=== PATIENT | female | born 1955 | race Caucasian/White ===

== ENCOUNTER → 2017-06-04 | Outpatient (CLI) | payer OTHER ==
[~2017-06-04] MED LIST: ASCO10004 PO; ASPI-515 PO; ASPI-621 PO; ASPI81TA14 PO; BIOTIN PO; CALC1TAB76 PO; CALCIUM PO; DOCU100C8 PO; HYDR-3240 PO; LEVO112T25 PO; LEVO88TA32 PO; LEVO88TA4 PO; LORA-446 PO; OMEP20CA9 PO; OXYC5TAB3 PO; PREN1TAB60 PO; SERT100T PO; SERT50TA PO; VITA400C43 PO
[2017-06-04 14:00] LABS: HEMATOCRIT 42.2 % (34.6-47.8); HEMOGLOBIN 14.2 g/dL (11.7-16.4); WHITE BLOOD COUNT 4.8 x10^3/uL (3.4-10)
[2017-06-04 14:12] LABS: ASPARTATE AMINO TRANSFERASE 22 U/L (15-37); BLOOD UREA NITROGEN 16 mg/dL (7-18)
== END | disposition home or self-care (01) ==
LOC: STAR 12:39
PROVIDERS: ATTEND Orthopaedic Surgery Orthopaedic Surgery of the Spine
DX: Z01.818 Encounter for other preprocedural examination (principal); M43.17 Spondylolisthesis, lumbosacral region; M48.07 Spinal stenosis, lumbosacral region; R79.1 Abnormal coagulation profile; Z85.9 Personal history of malignant neoplasm, unspecified
CPT/HCPCS: 36415; 71020; 80053; 81003; 85025; 85610; 85651; 85730; 93005

== ENCOUNTER 2017-06-09 10:39 | Inpatient (IN) | payer OTHER ==
[~2017-06-09] VITALS: Ht 170.2 cm; Wt 70.9 kg
[~2017-06-09 10:39] MED LIST changes: +DOCU100C33 PO; -DOCU100C8 PO; -LEVO112T25 PO; +LEVO112T41 PO; -LEVO88TA32 PO; +LEVO88TA43 PO
[2017-06-09] MEDS ORDERED: DIAZ5TAB PO (10:57)
[2017-06-09] MEDS ORDERED: HYDR-879 PO (10:57)
[2017-06-09] MEDS ORDERED: TRAZ50TA18 PO (10:58)
[2017-06-09] MEDS ORDERED: DIAZEPAM 5 MG/ML, 2ML ONE (11:30)
[2017-06-09] MEDS ORDERED: DIAZEPAM 5 MG/ML, 2ML IVPush ONE ×2 (11:30→12:00)
[2017-06-09] MEDS ORDERED: SODIUM CHLORIDE FLUSH 10ML SYR IVF ONE (11:30)
[2017-06-09 11:38] LABS: HEMATOCRIT 42.4 % (34.6-47.8); HEMOGLOBIN 14.3 g/dL (11.7-16.4)
[2017-06-09 11:48] LABS: BLOOD UREA NITROGEN 18 mg/dL (7-18)
[2017-06-09] MEDS ORDERED: DIAZEPAM 5 MG TABLET PO ONE (13:30)
[2017-06-09] MEDS ORDERED: KETOROLAC 30 MG/1 ML IVPush ONE (13:30)
[2017-06-09] MEDS ORDERED: KETOROLAC 30 MG/1 ML ONE (13:39)
[2017-06-09] MEDS ORDERED: DIAZEPAM 5 MG TABLET ONE (13:39)
[2017-06-09] MEDS ORDERED: OXYcodone IR 5MG TABLET PO PRN (14:00)
[2017-06-09] MEDS ORDERED: TEMAZEPAM 15 MG CAPSULE PO PRN (14:00)
[2017-06-09 18:45] VITALS: BP 119/69
[2017-06-09] MEDS: ONDANSETRON ODT 4 MG PO PRN (19:58)
[2017-06-09] MEDS: GABAPENTIN 300 MG CAPSULE PO SCH (19:59)
[2017-06-09] MEDS: FAMOTIDINE 20 MG TABLET PO SCH (20:00)
[2017-06-09] MEDS: SERTRALINE 50MG TABLET PO SCH (20:00)
[2017-06-10 03:12] VITALS: BP 97/60
[2017-06-10 05:45] LABS: HEMATOCRIT 41.3 % (34.6-47.8); HEMOGLOBIN 13.8 g/dL (11.7-16.4); WHITE BLOOD COUNT 5.5 x10^3/uL (3.4-10)
[2017-06-10 06:00] LABS: BLOOD UREA NITROGEN 25 mg/dL (7-18)
[2017-06-10] MEDS: LEVOTHYROXINE 88 MCG TABLET PO SCH (06:44)
[2017-06-10 08:01] VITALS: BP 111/70
[2017-06-10] MEDS: FAMOTIDINE 20 MG TABLET PO SCH ×2 (09:58→21:38)
[2017-06-10] MEDS: SENNA/DOCUSATE TABLET PO SCH (09:58)
[2017-06-10 13:09] VITALS: BP 117/64
[2017-06-10] MEDS ORDERED: BACLOFEN 10 MG TABLET PO PRN (15:30)
[2017-06-10] MEDS: GABAPENTIN 300 MG CAPSULE PO SCH (21:38)
[2017-06-10] MEDS: SERTRALINE 50MG TABLET PO SCH (21:38)
[2017-06-10 21:58] VITALS: BP 111/70
[2017-06-11 06:18] VITALS: BP 109/71
[2017-06-11] MEDS: LEVOTHYROXINE 88 MCG TABLET PO SCH (06:18)
[2017-06-11 08:17] VITALS: BP 137/85
[2017-06-11] MEDS: FAMOTIDINE 20 MG TABLET PO SCH (08:51)
[2017-06-11] MEDS: ONDANSETRON ODT 4 MG PO PRN ×2 (08:52→15:01)
[2017-06-11] MEDS: SENNA/DOCUSATE TABLET PO SCH (08:52)
[2017-06-11] MEDS ORDERED: BACL-19 PO (13:36)
[2017-06-11 14:19] VITALS: BP 114/65
== END 2017-06-11 15:53 | disposition home or self-care (01) | DRG 552 ==
LOC: ED 12:41 → EDIP 12:46 → 4NOR 14:39
PROVIDERS: ADMIT Family Medicine; ATTEND Family Medicine
DX: M51.17 Intervertebral disc disorders with radiculopathy, lumbosacral region (principal); E03.9 Hypothyroidism, unspecified; F41.1 Generalized anxiety disorder; G89.29 Other chronic pain; I25.10 Atherosclerotic heart disease of native coronary artery without angina pectoris; G43.909 Migraine, unspecified, not intractable, without status migrainosus; M19.90 Unspecified osteoarthritis, unspecified site; Z85.3 Personal history of malignant neoplasm of breast; Z86.73 Personal history of transient ischemic attack (TIA), and cerebral infarction without residual deficits; Z87.891 Personal history of nicotine dependence; Z88.8 Allergy status to other drugs, medicaments and biological substances; Z90.49 Acquired absence of other specified parts of digestive tract; Z90.12 Acquired absence of left breast and nipple
CPT/HCPCS: 36415; 72148; 80048; 82040; 85025; 96374; 96375; J1885; J3360; Q0162

== ENCOUNTER 2017-06-13 06:00 | Inpatient (IN) | payer OTHER ==
[~2017-06-13] VITALS: Ht 170.2 cm; Wt 75.8 kg
[~2017-06-13 06:00] MED LIST changes: +BACL-19 PO; +DIAZ5TAB PO; +HYDR-879 PO; +TRAZ50TA18 PO
[2017-06-13] MEDS ORDERED: LACTATED RINGERS 1,000 ML IV SCH (06:53)
[2017-06-13] MEDS ORDERED: VANCOMYCIN 1,000 MG ONE (07:29)
[2017-06-13] MEDS ORDERED: THROMBIN 5,000 UNIT VIAL TP ONE ×2 (07:29→08:46)
[2017-06-13] MEDS ORDERED: BUPIVACAINE/PF 0.5% ONE (07:29)
[2017-06-13] MEDS ORDERED: EPINEPHRINE 1 MG/ML, 1ML ONE (07:29)
[2017-06-13] MEDS ORDERED: BACITRACIN 50,000 UNIT ONE (07:29)
[2017-06-13] MEDS ORDERED: PHENYLEPHRINE 10 MG/ML ONE (08:02)
[2017-06-13] MEDS ORDERED: DEXAMETHASONE 4 MG/ML, 5ML ONE ×2 (08:02)
[2017-06-13] MEDS ORDERED: CEFAZOLIN 1,000 MG ONE (08:02)
[2017-06-13] MEDS ORDERED: PROPOFOL 10 MG/ML, 20ML ONE ×2 (08:02)
[2017-06-13] MEDS ORDERED: SUCCINYLCHOLINE 20 MG/ML, 10ML ONE (08:02)
[2017-06-13] MEDS ORDERED: ONDANSETRON 2MG/ML, 2ML ONE (08:02)
[2017-06-13] MEDS ORDERED: MIDAZOLAM 1 MG/ML, 2ML ONE (08:03)
[2017-06-13] MEDS ORDERED: FENTANYL PF 500 MCG/10ML ONE (08:03)
[2017-06-13] MEDS ORDERED: KETAMINE 10 MG/ML, 20ML ONE (08:03)
[2017-06-13] MEDS ORDERED: HYDROmorphone 2 MG/ML, 1ML ONE (08:03)
[2017-06-13] MEDS ORDERED: TRANEXAMIC ACID 100 MG/ML, 10ML ONE ×2 (08:35)
[2017-06-13] MEDS ORDERED: BUPIVACAINE/PF-EPI 0.5% 1:200K INFIL ONE (08:45)
[2017-06-13] MEDS ORDERED: BACITRACIN 50,000 UNIT IM ONE (08:46)
[2017-06-13] MEDS ORDERED: VANCOMYCIN 1,000 MG IVPush ONE (08:47)
[2017-06-13] MEDS ORDERED: MEPERIDINE/PF 25MG/0.5ML IVPush PRN (09:30)
[2017-06-13] MEDS ORDERED: ALBUTEROL/IPRATROPIUM 2.5MG/0.5MG, 3 ML NPPB PRN (09:30)
[2017-06-13] MEDS ORDERED: FENTANYL PF 100 MCG/2ML IV PRN (09:30)
[2017-06-13] MEDS ORDERED: ONDANSETRON 2MG/ML, 2ML IVPush PRN (09:30)
[2017-06-13] MEDS ORDERED: ACETAMINOPHEN 325 MG TABLET PO PRN (09:30)
[2017-06-13] MEDS ORDERED: PROMETHAZINE 25 MG/ML, 1ML IV PRN (09:30)
[2017-06-13] MEDS ORDERED: HYDROmorphone 1 MG/ML, 1ML IV PRN (09:30)
[2017-06-13] MEDS ORDERED: hydrALAzine 20 MG/ML, 1ML IV PRN (09:30)
[2017-06-13] MEDS ORDERED: MIDAZOLAM 1 MG/ML, 2ML IV PRN (09:30)
[2017-06-13] MEDS ORDERED: LABETALOL 5MG/ML, 20ML IV PRN ×2 (09:30→16:00)
[2017-06-13] MEDS ORDERED: OXYcodone 5 MG/5 ML ORAL.SOL UDC PO PRN (09:30)
[2017-06-13] MEDS ORDERED: OXYcodone 5 MG/5 ML ORAL.SOL UDC ONE (13:47)
[2017-06-13] MEDS ORDERED: KETOROLAC 30 MG/1 ML ONE (13:47)
[2017-06-13] MEDS ORDERED: KETOROLAC 30 MG/1 ML IVPush ONE (14:00)
[2017-06-13] MEDS ORDERED: ONDANSETRON 2MG/ML, 2ML IV PRN (16:00)
[2017-06-13] MEDS ORDERED: MAGNESIUM HYDROXIDE 8%, 30ML UDC PO PRN (16:00)
[2017-06-13] MEDS ORDERED: BISACODYL 10 MG SUPP PR PRN (16:00)
[2017-06-13] MEDS ORDERED: DIAZEPAM 5 MG/ML, 10ML VIAL IV PRN (16:00)
[2017-06-13] MEDS ORDERED: ACETAMINOPHEN 650 MG SUPP PR PRN (16:00)
[2017-06-13] MEDS ORDERED: DIAZEPAM 5 MG/ML, 2ML IV PRN (16:00)
[2017-06-13] MEDS ORDERED: SODIUM CHLORIDE 0.9% 1,000 ML IV PRN (16:00)
[2017-06-13] MEDS: D5%-0.9% NACL+KCL 20MEQ 1,000 ML IV SCH (16:31)
[2017-06-13] MEDS: CEFAZOLIN PMX 1GM/50ML 50 ML IVPB SCH (16:31)
[2017-06-13] MEDS: DIAZEPAM 5 MG TABLET PO PRN (16:40)
[2017-06-13] MEDS ORDERED: DIPHENHYDRAMINE 50 MG CAPSULE PO PRN (20:00)
[2017-06-13 20:25] VITALS: BP 113/66
[2017-06-13] MEDS ORDERED: ZOLPIDEM 5MG TABLET PO PRN (21:00)
[2017-06-13] MEDS: SERTRALINE 50MG TABLET PO SCH (21:51)
[2017-06-13] MEDS: PRENATAL VIT/IRON/FA 1 EACH TABLET PO SCH (21:51)
[2017-06-14] MEDS: CEFAZOLIN PMX 1GM/50ML 50 ML IVPB SCH (00:08)
[2017-06-14] MEDS: D5%-0.9% NACL+KCL 20MEQ 1,000 ML IV SCH ×3 (02:25→22:00)
[2017-06-14 02:58] VITALS: BP 107/64
[2017-06-14] MEDS: LEVOTHYROXINE 88 MCG TABLET PO SCH (05:48)
[2017-06-14 06:42] LABS: HEMATOCRIT 29.8 % (34.6-47.8); WHITE BLOOD COUNT 9.4 x10^3/uL (3.4-10)
[2017-06-14] MEDS: DIAZEPAM 5 MG/ML, 10ML VIAL IV PRN ×2 (07:02→12:30)
[2017-06-14 07:31] VITALS: BP 111/57
[2017-06-14] MEDS: CALCIUM CARBONATE 500 MG TABLET PO SCH (08:47)
[2017-06-14] MEDS: OMEPRAZOLE 20 MG CAPSULE.DR PO SCH (08:47)
[2017-06-14] MEDS: PRENATAL VIT/IRON/FA 1 EACH TABLET PO SCH ×2 (08:49→21:06)
[2017-06-14] MEDS: ASCORBIC ACID 500 MG TABLET PO SCH (08:49)
[2017-06-14] MEDS: SENNA/DOCUSATE TABLET PO SCH (08:49)
[2017-06-14] MEDS: OXYcodone IR 5MG TABLET PO PRN ×3 (12:30→23:23)
[2017-06-14 13:24] VITALS: BP 137/75
[2017-06-14 20:45] VITALS: BP 126/69
[2017-06-14] MEDS: SERTRALINE 50MG TABLET PO SCH (21:00)
[2017-06-14] MEDS: morphine SULFATE 10 MG/ML, 1ML IV PRN (21:06)
[2017-06-14] MEDS: DIAZEPAM 5 MG TABLET PO PRN (21:06)
[2017-06-15 03:38] VITALS: BP 126/69
[2017-06-15] MEDS: morphine SULFATE 10 MG/ML, 1ML IV PRN (03:57)
[2017-06-15] MEDS: DIAZEPAM 5 MG TABLET PO PRN ×3 (03:58→22:00)
[2017-06-15 06:02] LABS: HEMOGLOBIN 10.2 g/dL (11.7-16.4); WHITE BLOOD COUNT 12.9 x10^3/uL (3.4-10)
[2017-06-15] MEDS: PROMETHAZINE 25 MG/ML, 1ML IM PRN ×2 (07:21→17:35)
[2017-06-15] MEDS: OXYcodone IR 5MG TABLET PO PRN ×6 (07:22→22:00)
[2017-06-15 07:40] VITALS: BP 123/70
[2017-06-15] MEDS: D5%-0.9% NACL+KCL 20MEQ 1,000 ML IV SCH ×2 (08:00→18:00)
[2017-06-15] MEDS: OMEPRAZOLE 20 MG CAPSULE.DR PO SCH (08:26)
[2017-06-15] MEDS: LEVOTHYROXINE 88 MCG TABLET PO SCH (08:26)
[2017-06-15] MEDS: ASCORBIC ACID 500 MG TABLET PO SCH (08:29)
[2017-06-15] MEDS: CALCIUM CARBONATE 500 MG TABLET PO SCH (08:29)
[2017-06-15] MEDS: ACETAMINOPHEN 500 MG TABLET PO PRN ×2 (08:29→17:35)
[2017-06-15] MEDS: SENNA/DOCUSATE TABLET PO SCH (08:29)
[2017-06-15] MEDS: PRENATAL VIT/IRON/FA 1 EACH TABLET PO SCH ×2 (08:31→20:43)
[2017-06-15 13:53] VITALS: BP 119/63
[2017-06-15] MEDS ORDERED: ZOLPIDEM 5MG TABLET PO PRN (19:30)
[2017-06-15] MEDS ORDERED: ACETAMINOPHEN 650 MG SUPP PR PRN (19:30)
[2017-06-15] MEDS ORDERED: LABETALOL 5MG/ML, 20ML IV PRN (19:30)
[2017-06-15] MEDS ORDERED: SODIUM CHLORIDE 0.9% 1,000 ML IV PRN (19:30)
[2017-06-15] MEDS ORDERED: DIPHENHYDRAMINE 50 MG CAPSULE PO PRN (19:30)
[2017-06-15] MEDS ORDERED: MAGNESIUM HYDROXIDE 8%, 30ML UDC PO PRN (19:30)
[2017-06-15] MEDS ORDERED: BISACODYL 10 MG SUPP PR PRN (19:30)
[2017-06-15] MEDS ORDERED: ONDANSETRON 2MG/ML, 2ML IV PRN (19:30)
[2017-06-15 20:01] VITALS: BP 119/64
[2017-06-15] MEDS: SERTRALINE 50MG TABLET PO SCH (20:43)
[2017-06-16] MEDS: OXYcodone IR 5MG TABLET PO PRN ×6 (01:38→21:18)
[2017-06-16 02:28] VITALS: BP 120/71
[2017-06-16] MEDS: D5%-0.9% NACL+KCL 20MEQ 1,000 ML IV SCH ×3 (04:00→23:16)
[2017-06-16] MEDS: ACETAMINOPHEN 500 MG TABLET PO PRN ×2 (04:28→10:41)
[2017-06-16] MEDS: DIAZEPAM 5 MG TABLET PO PRN ×2 (04:29→10:32)
[2017-06-16 05:13] LABS: HEMATOCRIT 29.3 % (34.6-47.8); WHITE BLOOD COUNT 11.7 x10^3/uL (3.4-10)
[2017-06-16 07:00] VITALS: BP 103/67
[2017-06-16] MEDS: LEVOTHYROXINE 88 MCG TABLET PO SCH (08:04)
[2017-06-16] MEDS: OMEPRAZOLE 20 MG CAPSULE.DR PO SCH (08:04)
[2017-06-16] MEDS: PRENATAL VIT/IRON/FA 1 EACH TABLET PO SCH ×2 (08:04→21:18)
[2017-06-16] MEDS: SENNA/DOCUSATE TABLET PO SCH (08:05)
[2017-06-16] MEDS: CALCIUM CARBONATE 500 MG TABLET PO SCH (08:05)
[2017-06-16] MEDS: ASCORBIC ACID 500 MG TABLET PO SCH (08:05)
[2017-06-16 13:16] VITALS: BP 92/57
[2017-06-16 14:15] VITALS: BP 117/70
[2017-06-16] MEDS ORDERED: DIAZEPAM 5 MG TABLET PO PRN (18:00)
[2017-06-16] MEDS ORDERED: DIAZEPAM 5 MG/ML, 10ML VIAL IV PRN (18:00)
[2017-06-16 20:03] VITALS: BP 108/57
[2017-06-16] MEDS: SERTRALINE 50MG TABLET PO SCH (21:17)
[2017-06-16] MEDS: KETOROLAC 30 MG/1 ML IV PRN (21:18)
[2017-06-17 03:27] VITALS: BP 94/56
[2017-06-17 05:07] LABS: HEMATOCRIT 27.8 % (34.6-47.8); HEMOGLOBIN 9.4 g/dL (11.7-16.4); WHITE BLOOD COUNT 8.7 x10^3/uL (3.4-10)
[2017-06-17] MEDS: LEVOTHYROXINE 88 MCG TABLET PO SCH (06:48)
[2017-06-17 07:00] VITALS: BP 109/65
[2017-06-17] MEDS: KETOROLAC 30 MG/1 ML IV PRN ×2 (08:00→16:30)
[2017-06-17] MEDS: OMEPRAZOLE 20 MG CAPSULE.DR PO SCH (08:21)
[2017-06-17] MEDS: ASCORBIC ACID 500 MG TABLET PO SCH (08:22)
[2017-06-17] MEDS: CALCIUM CARBONATE 500 MG TABLET PO SCH (08:22)
[2017-06-17] MEDS: PRENATAL VIT/IRON/FA 1 EACH TABLET PO SCH ×2 (08:22→20:55)
[2017-06-17] MEDS: SENNA/DOCUSATE TABLET PO SCH (08:22)
[2017-06-17] MEDS: OXYcodone IR 5MG TABLET PO PRN ×4 (09:50→20:55)
[2017-06-17] MEDS: D5%-0.9% NACL+KCL 20MEQ 1,000 ML IV SCH ×2 (10:00→20:00)
[2017-06-17 12:58] VITALS: BP 112/68
[2017-06-17] MEDS ORDERED: DIAZEPAM 5 MG TABLET PO PRN (13:30)
[2017-06-17] MEDS ORDERED: DIAZEPAM 5 MG/ML, 10ML VIAL IV PRN (13:30)
[2017-06-17 20:20] VITALS: BP 93/50
[2017-06-17] MEDS: SERTRALINE 50MG TABLET PO SCH (20:54)
[2017-06-18] MEDS: KETOROLAC 30 MG/1 ML IV PRN ×2 (01:20→10:11)
[2017-06-18] MEDS: OXYcodone IR 5MG TABLET PO PRN ×3 (01:20→13:54)
[2017-06-18] MEDS: D5%-0.9% NACL+KCL 20MEQ 1,000 ML IV SCH (06:00)
[2017-06-18] MEDS: LEVOTHYROXINE 88 MCG TABLET PO SCH (06:45)
[2017-06-18 08:35] VITALS: BP 108/70
[2017-06-18 09:07] LABS: HEMATOCRIT 29.2 % (34.6-47.8); HEMOGLOBIN 9.5 g/dL (11.7-16.4); WHITE BLOOD COUNT 6.8 x10^3/uL (3.4-10)
[2017-06-18] MEDS: CALCIUM CARBONATE 500 MG TABLET PO SCH (10:10)
[2017-06-18] MEDS: SENNA/DOCUSATE TABLET PO SCH (10:10)
[2017-06-18] MEDS: PRENATAL VIT/IRON/FA 1 EACH TABLET PO SCH (10:10)
[2017-06-18] MEDS: OMEPRAZOLE 20 MG CAPSULE.DR PO SCH (10:11)
[2017-06-18] MEDS: ASCORBIC ACID 500 MG TABLET PO SCH (10:11)
[2017-06-18] MEDS ORDERED: OXYC5CAP2 PO (13:48)
[2017-06-18] MEDS ORDERED: ONDA4TAB7 PO (13:48)
[2017-06-18] MEDS ORDERED: DIAZ5TAB PO (13:50)
[2017-06-18] MEDS ORDERED: CEPH-368 PO (13:51)
[2017-06-18] MEDS ORDERED: IBUP-1223 PO (13:52)
[2017-06-18] MEDS ORDERED: OMEP-110 PO (13:54)
[2017-06-18 13:55] VITALS: BP 119/67
[2017-06-18] MEDS ORDERED: SENN1TAB7 PO (13:55)
[2017-06-18] MEDS ORDERED: ACET325T14 PO (13:57)
[2017-06-18] MEDS ORDERED: DIPH25CA61 PO (13:57)
== END 2017-06-18 14:30 | disposition home or self-care (01) | DRG 460 ==
LOC: ORIP 06:00 → 4NOR 14:50 → DCLOUNGE 06-18 14:15
PROVIDERS: ADMIT Orthopaedic Surgery Orthopaedic Surgery of the Spine; ATTEND Orthopaedic Surgery Orthopaedic Surgery of the Spine
PROC: 0SG30AJ Fusion of Lumbosacral Joint with Interbody Fusion Device, Posterior Approach, Anterior Column, Open Approach (ICD-10-PCS; 2017-06-13)
PROC: 07DR3ZX Extraction of Iliac Bone Marrow, Percutaneous Approach, Diagnostic (ICD-10-PCS; 2017-06-13)
PROC: 00Q20ZZ Repair Dura Mater, Open Approach (ICD-10-PCS; 2017-06-13)
PROC: 4A11X4G Monitoring of Peripheral Nervous Electrical Activity, Intraoperative, External Approach (ICD-10-PCS; 2017-06-13)
PROC: 0SG00AJ Fusion of Lumbar Vertebral Joint with Interbody Fusion Device, Posterior Approach, Anterior Column, Open Approach (ICD-10-PCS; principal; 2017-06-13 08:00)
DX: M43.16 Spondylolisthesis, lumbar region (principal); G96.11 Dural tear; M48.06 Spinal stenosis, lumbar region; M43.17 Spondylolisthesis, lumbosacral region; M54.16 Radiculopathy, lumbar region; M48.07 Spinal stenosis, lumbosacral region; M54.17 Radiculopathy, lumbosacral region
CPT/HCPCS: 36415; 72100; 85025; 86850; 86900; C1713; J0171; J0690; J1100; J1170; J1885; J2250; J2270; J2405; J2550; J2704; J3010; J3360; J3370; J3490; C1760; C1762; C1763; C9362; J0330; J2370; J3480; J7120

== ENCOUNTER 2017-07-11 18:16 | Emergency (ER) | payer OTHER ==
[~2017-07-11] VITALS: Ht 170.2 cm; Wt 62.7 kg
[~2017-07-11 18:16] MED LIST changes: +ACET325T14 PO; +CEPH-368 PO; +DIPH25CA61 PO; +IBUP-1223 PO; +OMEP-110 PO; +ONDA4TAB7 PO; +OXYC5CAP2 PO; +SENN1TAB7 PO
[2017-07-11] MEDS ORDERED: ONDANSETRON 2MG/ML, 2ML ONE (19:13)
[2017-07-11] MEDS ORDERED: HYDROmorphone 1 MG/ML, 1ML ONE (19:13)
[2017-07-11] MEDS ORDERED: SODIUM CHLORIDE FLUSH 10ML SYR IVF ONE (19:30)
[2017-07-11] MEDS ORDERED: HYDROmorphone 1 MG/ML, 1ML IVPush PRN (19:30)
[2017-07-11] MEDS ORDERED: SODIUM CHLORIDE 0.9% 1,000ML IV ONE (19:30)
[2017-07-11] MEDS ORDERED: ONDANSETRON 2MG/ML, 2ML IVPush ONE (19:30)
[2017-07-11 20:04] LABS: HEMATOCRIT 34.9 % (34.6-47.8); HEMOGLOBIN 11.7 g/dL (11.7-16.4); WHITE BLOOD COUNT 10.6 x10^3/uL (3.4-10)
[2017-07-11 20:15] LABS: ASPARTATE AMINO TRANSFERASE 17 U/L (15-37); BLOOD UREA NITROGEN 15 mg/dL (7-18); C-REACTIVE PROTEIN, QUANT 0.56 mg/dL (0.02-0.49)
[2017-07-11 20:46] LABS: DAU SCREEN DISCLAIMER
[2017-07-11 20:52] LABS: PATH.CAST-FLAG NOT PRESENT; SPERM-FLAG NOT PRESENT; SRC-FLAG NOT PRESENT; XTAL-FLAG NOT PRESENT; YLC-FLAG NOT PRESENT
[2017-07-11 22:10] VITALS: BP 112/70
== END 2017-07-11 23:02 | disposition home or self-care (01) ==
LOC: ED 20:44
DX: G89.18 Other acute postprocedural pain (principal); M54.5 Low back pain; R10.31 Right lower quadrant pain; R11.2 Nausea with vomiting, unspecified; E05.90 Thyrotoxicosis, unspecified without thyrotoxic crisis or storm; G43.909 Migraine, unspecified, not intractable, without status migrainosus
CPT/HCPCS: 36415; 80053; 80307; 81001; 85025; 85651; 86140; 87086; 93005; 96360; 99285; J7030; G0479

== ENCOUNTER 2017-07-29 10:24 | Emergency (ER) | payer OTHER ==
[~2017-07-29] VITALS: Ht 170.2 cm; Wt 60.5 kg
[2017-07-29] MEDS ORDERED: SODIUM CHLORIDE 0.9% 1,000ML IVBOLUS ONE (12:00)
[2017-07-29] MEDS ORDERED: SODIUM CHLORIDE FLUSH 10ML SYR IVF ONE (12:00)
[2017-07-29] MEDS ORDERED: MORPHINE SULFATE 4 MG/ML, 1ML IVPush PRN (12:00)
[2017-07-29] MEDS ORDERED: ONDANSETRON 2MG/ML, 2ML IVPush ONE (12:00)
[2017-07-29 12:30] LABS: BLOOD UREA NITROGEN 11 mg/dL (7-18)
[2017-07-29 12:33] LABS: ASPARTATE AMINO TRANSFERASE 20 U/L (15-37)
[2017-07-29] MEDS ORDERED: CEFTRIAXONE 1,000 MG ONE (12:56)
[2017-07-29] MEDS ORDERED: CEFTRIAXONE 1,000 MG IM ONE (13:00)
[2017-07-29 13:25] LABS: HEMATOCRIT 37.2 % (34.6-47.8); HEMOGLOBIN 12.3 g/dL (11.7-16.4); WHITE BLOOD COUNT 12.4 x10^3/uL (3.4-10)
[2017-07-29 13:46] VITALS: BP 123/69
== END 2017-07-29 14:03 | disposition home or self-care (01) ==
LOC: ED 13:25
DX: R10.30 Lower abdominal pain, unspecified (principal); R31.9 Hematuria, unspecified; E05.90 Thyrotoxicosis, unspecified without thyrotoxic crisis or storm; I25.110 Atherosclerotic heart disease of native coronary artery with unstable angina pectoris; G89.29 Other chronic pain; R51 Headache; Z90.49 Acquired absence of other specified parts of digestive tract; Z98.890 Other specified postprocedural states
CPT/HCPCS: 36415; 76700; 80053; 81001; 83690; 85025; 87077; 87086; 96372; 99285; J0696; 87186

== ENCOUNTER → 2018-01-30 | Outpatient (CLI) | payer OTHER | LOC: RAD 11:16 | PROVIDERS: ATTEND Neurological Surgery | DX: M51.26 Other intervertebral disc displacement, lumbar region (principal); M41.9 Scoliosis, unspecified; T85.698A Other mechanical complication of other specified internal prosthetic devices, implants and grafts, initial encounter | CPT/HCPCS: 72082; 72110 ==

== ENCOUNTER 2018-04-06 16:41 | Emergency (ER) | payer OTHER ==
[~2018-04-06] VITALS: Ht 170.2 cm; Wt 62.0 kg
[2018-04-06] MEDS ORDERED: TRAM50TA2 PO (16:58)
[2018-04-06] MEDS ORDERED: SODIUM CHLORIDE FLUSH 10ML SYR IVF ONE (17:00)
[2018-04-06] MEDS ORDERED: MORPHINE SULFATE 4 MG/ML, 1ML IVPush PRN (17:00)
[2018-04-06] MEDS ORDERED: MORPHINE SULFATE 4 MG/ML, 1ML ONE (17:21)
[2018-04-06 17:35] LABS: MICROSCOPIC NOT IND
[2018-04-06 17:40] LABS: CULTURE INDICATED? NO
[2018-04-06 17:45] LABS: ALANINE AMINOTRANSFERASE 15 U/L (12-78); ALBUMIN 2.7 g/dL (3.4-5.0); ANION GAP 8 mmol/L (5-15); CALCIUM 8.2 mg/dL (8.5-10.1); CHLORIDE 107 mmol/L (98-107)
[2018-04-06 17:47] LABS: ALKALINE PHOSPHATASE 82 U/L (45-117); BILIRUBIN,TOTAL 0.6 mg/dL (0.2-1.0)
[2018-04-06 17:55] LABS: BASOPHILS # (AUTO) 0.02 x10^3/uL (0-0.1); BASOPHILS % (AUTO) 0 % (0-1); EOSINOPHILS # (AUTO) 0.18 x10^3/uL (0-0.4); EOSINOPHILS % (AUTO) 3 % (1-7); LYMPHOCYTES # (AUTO) 1.43 x10^3/uL (1-3.4); LYMPHOCYTES % (AUTO) 26 % (22-44); MD NO; MEAN CORPUSCULAR HEMOGLOBIN 30.8 pg (27.0-34.8); MEAN CORPUSCULAR HGB CONC 33.8 g/dL (32.4-35.8); MEAN CORPUSCULAR VOLUME 91.1 fL (80-100); MEAN PLATELET VOLUME 8.3 fL (7.4-10.4); MONOCYTES # (AUTO) 0.54 x10^3/uL (0.2-0.8); MONOCYTES % (AUTO) 10 % (2-9); NEUTROPHILS # (AUTO) 3.43 x10^3/uL (1.8-6.8); NEUTROPHILS % (AUTO) 61 % (42-75); PLATELET COUNT 307 x10^3/uL (130-400); RED BLOOD COUNT 3.22 x10^6/uL (3.82-5.3)
[2018-04-06 18:21] VITALS: BP 123/82
[2018-04-06] MEDS ORDERED: OMNIPAQUE 350 MG/ML, 100ML BOTTLE ONE (18:33)
== END 2018-04-06 20:34 | disposition home or self-care (01) ==
LOC: ED 20:05
DX: R10.84 Generalized abdominal pain (principal); R63.0 Anorexia; E05.90 Thyrotoxicosis, unspecified without thyrotoxic crisis or storm; I25.10 Atherosclerotic heart disease of native coronary artery without angina pectoris; Z87.891 Personal history of nicotine dependence; Z86.73 Personal history of transient ischemic attack (TIA), and cerebral infarction without residual deficits
CPT/HCPCS: 36415; 74177; 80053; 81003; 83690; 85025; 96374; 99285; Q9967; 96372

== ENCOUNTER → 2018-04-20 | Outpatient (CLI) | payer OTHER ==
[~2018-04-20] MED LIST changes: +TRAM50TA2 PO
== END | disposition home or self-care (01) ==
LOC: CFH 10:28
PROVIDERS: ATTEND Neurological Surgery
DX: M79.605 Pain in left leg (principal)

== ENCOUNTER → 2018-05-13 | Outpatient (CLI) | payer OTHER | END | disposition home or self-care (01) | LOC: CFH 10:39 | PROVIDERS: ATTEND Neurological Surgery | DX: M51.26 Other intervertebral disc displacement, lumbar region (principal); M41.9 Scoliosis, unspecified; Z98.1 Arthrodesis status | CPT/HCPCS: 72110 ==

== ENCOUNTER → 2018-08-11 | Outpatient (CLI) | payer OTHER ==
[~2018-08-11] MED LIST changes: +HYDR-3622 PO; -HYDR-879 PO; -SENN1TAB7 PO; +SENN1TAB8 PO; +TRAZ-136 PO; -TRAZ50TA18 PO
== END | disposition home or self-care (01) ==
LOC: CFH 12:36
PROVIDERS: ATTEND Neurological Surgery
DX: Z01.812 Encounter for preprocedural laboratory examination (principal); M51.26 Other intervertebral disc displacement, lumbar region
CPT/HCPCS: 71046

== ENCOUNTER 2018-11-23 13:38 | Outpatient (CLI) | payer OTHER ==
[~2018-11-23 13:38] MED LIST changes: -ASPI-621 PO; +ASPI81TA45 PO; -TRAZ-136 PO; +TRAZ50TA66 PO
== END 2018-11-23 23:59 | disposition home or self-care (01) ==
LOC: CFH 13:38
PROVIDERS: ATTEND Nurse Practitioner
DX: Z12.31 Encounter for screening mammogram for malignant neoplasm of breast (principal)
CPT/HCPCS: 77063; 77067

== ENCOUNTER 2018-12-14 08:17 | Outpatient (CLI) | payer OTHER | END 2018-12-14 23:59 | disposition home or self-care (01) | LOC: CFH 08:17 | PROVIDERS: ATTEND Nurse Practitioner Family | DX: I67.1 Cerebral aneurysm, nonruptured (principal); J32.0 Chronic maxillary sinusitis; Z86.79 Personal history of other diseases of the circulatory system; Z98.890 Other specified postprocedural states | CPT/HCPCS: 70450 ==

== ENCOUNTER 2019-01-30 20:50 | Emergency (ER) | payer OTHER ==
[~2019-01-30] VITALS: Ht 170.2 cm; Wt 60.0 kg
[~2019-01-30 20:50] MED LIST changes: +SENN-177 PO; -SENN1TAB8 PO
--- NOTE | 2019-01-30 21:14 | NUR ---
PT BIB [facility] FOR HEAD PRESSURE APPROX 45 MIN AGO AND THEN HEADACHE. 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 PT ALSO HAS HX OF HYPOTHYRODISM, LEFT BREAST CA WITH NODE REMOVAL. VSS. PT IS NEUROLOGICALLY INTACT. PIV PLACED BY YULISA. LAB AT BEDSIDE
[2019-01-30 21:22] LABS: BASOPHILS # (AUTO) 0.02 x10^3/uL (0-0.1); BASOPHILS % (AUTO) 0 % (0-1); EOSINOPHILS # (AUTO) 0.13 x10^3/uL (0-0.4); EOSINOPHILS % (AUTO) 3 % (1-7); LYMPHOCYTES # (AUTO) 2.24 x10^3/uL (1-3.4); LYMPHOCYTES % (AUTO) 43 % (22-44); MD NO; MEAN CORPUSCULAR HEMOGLOBIN 30.6 pg (27.0-34.8); MEAN CORPUSCULAR HGB CONC 32.9 g/dL (32.4-35.8); MEAN CORPUSCULAR VOLUME 92.9 fL (80-100); MONOCYTES # (AUTO) 0.49 x10^3/uL (0.2-0.8); MONOCYTES % (AUTO) 9 % (2-9); NEUTROPHILS # (AUTO) 2.37 x10^3/uL (1.8-6.8); NEUTROPHILS % (AUTO) 45 % (42-75); PLATELET COUNT 234 x10^3/uL (130-400); RED CELL DISTRIBUTION WIDTH 14.1 % (9.6-15.2)
--- NOTE | 2019-01-30 21:22 | NUR ---
PT TO CT
[2019-01-30 21:30] LABS: ALBUMIN 3.5 g/dL (3.4-5.0); ANION GAP 6 mmol/L (5-15); CALCIUM 8.6 mg/dL (8.5-10.1); CHLORIDE 114 mmol/L (98-107); CREATININE 0.72 mg/dL (0.55-1.02)
[2019-01-30] MEDS ORDERED: ACETAMINOPHEN 500 MG TABLET ONE (22:19)
[2019-01-30] MEDS ORDERED: ACETAMINOPHEN 325 MG TABLET PO ONE (22:30)
--- NOTE | 2019-01-30 22:30 | NUR ---
PT MEDICATED. PT VERBALIZED UNDERSTANDING OF DISCHARGE AND FOLOW UP INSTRUCTIONS. PT AMBULATED WITH A STEADY GAIT
[2019-01-30 22:32] VITALS: BP 105/59
== END 2019-01-30 22:34 | disposition home or self-care (01) ==
LOC: ED 21:37
DX: G43.C0 Periodic headache syndromes in child or adult, not intractable (principal); R00.2 Palpitations; E03.9 Hypothyroidism, unspecified; Z86.73 Personal history of transient ischemic attack (TIA), and cerebral infarction without residual deficits; I25.10 Atherosclerotic heart disease of native coronary artery without angina pectoris; Z90.89 Acquired absence of other organs; Z98.61 Coronary angioplasty status; Z85.3 Personal history of malignant neoplasm of breast
CPT/HCPCS: 36415; 70450; 80048; 82040; 85025; 93005; 99284

== ENCOUNTER 2021-02-13 21:55 | Emergency (ER) | payer MEDICAID ==
[~2021-02-13] VITALS: Ht 170.2 cm; Wt 65.6 kg
[~2021-02-13 21:55] MED LIST changes: +ASCO100018 PO; -ASCO10004 PO; -ASPI-515 PO; +ASPI-963 PO; +HYDR-2214 PO; -HYDR-3240 PO; -OXYC5TAB3 PO; +OXYC5TAB98 PO
[2021-02-13 21:56] VITALS: BP 139/89
--- NOTE | 2021-02-13 22:13 | NUR ---
pt c/o SORE THROAT AND NECK "BURNING" X TWO DAYS, +CHAMORRO
[2021-02-13] MEDS ORDERED: KETOROLAC 30 MG/1 ML ONE (22:23)
[2021-02-13] MEDS ORDERED: KETOROLAC 30 MG/1 ML IM ONE (22:30)
[2021-02-13 22:45] LABS: RAPID INFLUENZA A Negative (Negative); RAPID INFLUENZA B Negative (Negative)
--- NOTE | 2021-02-13 23:18 | NUR ---
First contact with patient for dc, pt given rx and instruct, face mask and detailed instruct re: f/u. Pt states she is employee contract through [employer] and is wanting stat covid results. Attempted to discuss with pt the process for employees/EHS/super Addendum: 02/13/21 at 2336 by [email or web address] pt became upset. Pt will call her unit charge/it service continuity supervisor or college it service continuity supervisor or EHS to determine what is appropriate.
== END 2021-02-13 23:39 | disposition home or self-care (01) ==
LOC: ED 23:21
DX: J02.8 Acute pharyngitis due to other specified organisms (principal); B97.89 Other viral agents as the cause of diseases classified elsewhere; Z20.822 Contact with and (suspected) exposure to COVID-19; R51.9 Headache, unspecified; Z88.8 Allergy status to other drugs, medicaments and biological substances; Z90.10 Acquired absence of unspecified breast and nipple; Z86.39 Personal history of other endocrine, nutritional and metabolic disease; Z86.73 Personal history of transient ischemic attack (TIA), and cerebral infarction without residual deficits; Z90.89 Acquired absence of other organs; Z79.899 Other long term (current) drug therapy
CPT/HCPCS: 87081; 87400; 87880; 96372; 99283; J1885; U0003

== ENCOUNTER 2021-06-23 09:07 | Observation (INO) | payer MEDICAID ==
[~2021-06-23] VITALS: Ht 170.2 cm; Wt 60.0 kg
[2021-06-23 10:12] LABS: BASOPHILS % (AUTO) 1 % (0-1); EOSINOPHILS % (AUTO) 4 % (1-7); LYMPHOCYTES % (AUTO) 24 % (22-44); MEAN CORPUSCULAR HEMOGLOBIN 31.1 pg (27.0-34.8); MEAN CORPUSCULAR HGB CONC 33.5 g/dL (32.4-35.8); MEAN PLATELET VOLUME 8.6 fL (7.4-10.4); MONOCYTES % (AUTO) 7 % (2-9); NEUTROPHILS % (AUTO) 65 % (42-75); PLATELET COUNT 271 x10^3/uL (130-400); RED BLOOD COUNT 5.01 x10^6/uL (3.82-5.3); RED CELL DISTRIBUTION WIDTH 13.8 % (9.6-15.2)
[2021-06-23 10:13] LABS: MICROSCOPIC NOT IND
[2021-06-23 10:21] LABS: ALBUMIN 3.9 g/dL (3.4-5.0); ANION GAP 6 mmol/L (5-15); CALCIUM 9.2 mg/dL (8.5-10.1); CHLORIDE 108 mmol/L (98-107)
[2021-06-23 10:26] LABS: ALANINE AMINOTRANSFERASE 26 U/L (12-78); ALKALINE PHOSPHATASE 104 U/L (45-117); BILIRUBIN,TOTAL 0.6 mg/dL (0.2-1.0); CREATININE 0.63 mg/dL (0.55-1.02); TOTAL PROTEIN 8.8 g/dL (6.4-8.2)
--- NOTE | 2021-06-23 10:37 | NUR ---
[facility] CALLED HIDA SCAN IN 30 MIN. PT NPO SINCE LAST PM
[2021-06-23 11:00] LABS: TROPONIN I < 0.015 ng/mL (0.000-0.045)
[2021-06-23 11:06] VITALS: BP 116/74
--- NOTE | 2021-06-23 11:47 | NUR ---
PT TO IR FOR HIDA
[2021-06-23] MEDS ORDERED: SINCALIDE (KINEVAC) 5 MCG ONE (12:17)
--- NOTE | 2021-06-23 13:39 | NUR ---
PT BACK FROM IR
== END 2021-06-23 14:17 | disposition home or self-care (01) ==
LOC: ED 10:24 → EDIP 12:02
PROVIDERS: ADMIT Emergency Medicine; ATTEND Emergency Medicine
DX: K80.50 Calculus of bile duct without cholangitis or cholecystitis without obstruction (principal); Z20.822 Contact with and (suspected) exposure to COVID-19; B34.9 Viral infection, unspecified; I25.10 Atherosclerotic heart disease of native coronary artery without angina pectoris; E05.90 Thyrotoxicosis, unspecified without thyrotoxic crisis or storm; Z86.73 Personal history of transient ischemic attack (TIA), and cerebral infarction without residual deficits; Z79.899 Other long term (current) drug therapy
CPT/HCPCS: 36415; 71045; 76705; 78226; 80053; 81003; 83690; 84484; 85025; 93005; 99285; A9537; G0378; J2805; U0003; U0005

== ENCOUNTER 2021-07-15 18:04 | Emergency (ER) | payer MEDICAID ==
[~2021-07-15] VITALS: Ht 170.2 cm; Wt 54.6 kg
--- NOTE | 2021-07-15 18:21 | NUR ---
PT BIB EMS WITH RUQ PAIN X 3 HOURS. PT STATES SHE WAS TOLD BY MD THAT SHE NEEDED HER GALL BLADDER REMOVED BUT PT DECLINED. PT CONNECTED TO ALL MONITORS AND PROVIDED URINE SAMPLE
[2021-07-15 19:20] VITALS: BP 136/76
== END 2021-07-15 19:38 | disposition home or self-care (01) ==
LOC: ED 18:09
DX: K80.50 Calculus of bile duct without cholangitis or cholecystitis without obstruction (principal)
CPT/HCPCS: 99281; 99283